=== PATIENT | female | born 1965 | race American Indian/Alaskan Native ===

== ENCOUNTER 2017-10-23 13:54 | Inpatient (IN) | payer OTHER ==
[2017-10-23 13:55] VITALS: BMI 27.4
[2017-10-23] MEDS ORDERED: Sodium Chloride 0.9% 1,000 ML IV ONE (15:36)
[2017-10-23 16:01] LABS: BASO # 0.1 K/uL (0.0-0.2); BASO % 1.5 % (0.0-2.0); EOS % 0.5 % (0.0-4.0); HEMOGLOBIN 15.2 g/dL (11.0-16.0); LYMPH # 1.5 K/uL (1.0-4.3); LYMPH % 28.9 % (20.0-40.0); MEAN CORPUSCULAR HEMOGLOBIN 28.2 pg (27.0-31.0); MEAN PLATELET VOLUME 9.2 fL (7.2-11.7); MONO # 0.5 K/uL (0.0-0.8); MONO % 9.4 % (0.0-10.0); NEUT # 3.2 K/uL (1.8-7.0); NEUT % 59.7 % (50.0-75.0); NRBC % 0.2 % (0.0-2.0); RBC 5.4 Mil/uL (3.80-5.20); RED CELL DISTRIBUTION WIDTH 13.7 % (11.5-14.5); WHITE BLOOD COUNT 5.3 K/uL (4.8-10.8)
[2017-10-23 16:09] LABS: INR 1.2; PROTHROMBIN TIME 12.7 SECONDS (9.7-12.2)
[2017-10-23] MEDS ORDERED: Sodium Chloride 0.9% 1,000 ML ONE (16:12)
[2017-10-23 16:17] LABS: ALBUMIN 4.3 g/dL (3.5-5.0); ALT/SGPT 61 U/L (9-52); AST/SGOT 34 U/L (14-36); BLOOD UREA NITROGEN 8 mg/dL (7-17); CALCIUM 9.4 mg/dl (8.6-10.4); GFR AFRICAN-AMERICAN > 60; GFR NON-AFRICAN AMERICAN > 60
[2017-10-23 16:34] LABS: FREE T4 1.01 ng/dL (0.78-2.19)
--- NOTE | 2017-10-23 17:44 | CT ---
PROCEDURE: CT HEAD WITHOUT CONTRAST. HISTORY: Left frontal headache. Dizziness. COMPARISON: 03/08/2016 TECHNIQUE: Axial computed tomography images were obtained through the head/brain without intravenous contrast. Radiation dose: Total exam DLP = 1341.62 mGy-cm. This CT exam was performed using one or more of the following dose reduction techniques: Automated exposure control, adjustment of the mA and/or kV according to patient size, and/or use of iterative reconstruction technique. FINDINGS: HEMORRHAGE: No intracranial hemorrhage. BRAIN: No mass effect or edema. No atrophy or chronic microvascular ischemic changes. VENTRICLES: Unremarkable. No hydrocephalus. CALVARIUM: Unremarkable. PARANASAL SINUSES: Unremarkable as visualized. No significant inflammatory changes. MASTOID AIR CELLS: Unremarkable as visualized. No inflammatory changes. OTHER FINDINGS: None. IMPRESSION: Normal CT of the Head. No intracranial mass, hemorrhage or evidence of acute infarct.
--- NOTE | 2017-10-23 20:47 | C.PDOC ---
Time Seen by Provider: 10/23/17 14:52 Chief Complaint (Nursing): Headache History Per: Patient, Family Onset/Duration Of Symptoms: Days (about 1 week), Waxing/Waning Current Symptoms Are (Timing): Still Present Severity: Moderate Quality: Pressure Associated Symptoms: Nausea, Vomiting, Other (Dizziness) Additional History Per: Prior Records Past Medical History Reviewed: Historical Data, Nursing Documentation, Vital Signs Vital Signs: Last Vital Signs Temp 97.7 F 10/23/17 14:00 Pulse 63 10/23/17 20:20 Resp 16 10/23/17 20:20 BP 131/75 10/23/17 20:20 Pulse Ox 98 10/23/17 20:20 - Medical History PMH: Anemia, Hypercholesterolemia, Hypothyroidism Surgical History: - [facility] Procedures PACKED CELL TRANSFUSION (02/08/13) Family History: States: Unknown Family Hx - Social History Hx Tobacco Use: No Hx Alcohol Use: No Hx Substance Use: No - Immunization History Hx Tetanus Toxoid Vaccination: No Hx Influenza Vaccination: No Hx Pneumococcal Vaccination: No Review Of Systems Except As Marked, All Systems Reviewed And Found Negative. Constitutional: Negative for: Fever Eyes: Positive for: Vision Change ENT: Negative for: Ear Pain, Ear Discharge Cardiovascular: Negative for: Chest Pain Respiratory: Negative for: Shortness of Breath Gastrointestinal: Positive for: Nausea, Vomiting. Negative for: Abdominal Pain , Diarrhea Genitourinary: Negative for: Dysuria Musculoskeletal: Negative for: Neck Pain Skin: Negative for: Rash Neurological: Positive for: Incoordination, Headache, Dizziness. Negative for: Weakness, Numbness, Seizures, Altered Mental Status Physical Exam - Physical Exam Appears: No Acute Distress Skin: Normal Color, Warm, Dry Head: Atraumatic, Normacephalic Eye(s): bilateral: PERRL, Other (mild nystagmus) Ear(s): Bilateral: Normal Neck: Normal ROM, Supple Cardiovascular: Rhythm Regular Respiratory: Normal Breath Sounds, No Accessory Muscle Use Gastrointestinal/Abdominal: Soft, No Tenderness Extremity: Normal ROM Neurological/Psych: Oriented x3, Normal Speech, Normal Cognition, Normal Cranial Nerves, Cerebellar Signs (possible subtle abnormality to FTN on left side), Normal Motor, Normal Sensation ED Course And Treatment - Laboratory Results Result Diagrams: 10/23/17 15:57 10/23/17 15:57 Lab Interpretation: No Acute Changes ECG: Interpreted By Me, Viewed By Me ECG Rhythm: Sinus Rhythm, Nonspecific Changes ECG Interpretation: No Acute Changes Rate From EC O2 Sat by Pulse Oximetry: 98 Pulse Ox Interpretation: Normal - CT Scan/US CT head Other Rad Studies (CT/US): Read By Radiologist, Radiology Report Reviewed CT/US Interpretation: IMPRESSION: Normal CT of the Head. No intracranial mass , hemorrhage or evidence of acute infarct. - Physician Consult Information Physician Contacted: Henrik Pino (Neuro) Outcome Of Conversation: I discussed with him the pt's presentation and findings , he recommended that pt be admitted and given Valium 2mg po q6hrs for vertigo and to obtain MRI of brain with and without contrast. He will see pt in the hospital. Progress - Interventions Interventions:: Observation, Intravenous fluid - Medications Administered Oral: Acetaminophen, Antiemetic - Data Reviewed Data Reviewed: Lab, Diagnostic imaging, EKG, Old records, Other - Patient Status Patient status: Partially improved - Continuity of Care Discussed patient case with:: Patient, Family-HIPPA compliant, ED Nurse, On- call PMD-pt unassigned Discussed pt. case with heritage consultant/specialty: Neurology - Patient Plan Patient Plan: Admission Disposition Discussed With : Tyron Estrada Comment: He accepted pt on hospitalist service. Doctor Will See Patient In The: Hospital Counseled Patient/Family Regarding: Studies Performed, Diagnosis - Disposition Disposition: HOSPITALIZED Disposition Time: 20:50 Condition: FAIR - Clinical Impression Clinical Impression: Headache, Vertigo
--- NOTE | 2017-10-23 22:31 | CP.PCM.HP ---
<Karrie De La Fuente - Last Filed: 10/23/17 22:45> History of Present Illness - History of Present Illness History of Present Illness: H&P: 51 year old female with past medical history of hypothyroidism, HLD, vertigo and vit D deficiency presented to hospitals for feeling dizzy and nausea for about 7 days. Patient states that for about 7 days, she has been "feeling funny" on the left side of her face. This funny feeling was intermittent at first but in last few days has been more persistent. This morning, patient states that was having a hard time forming words and again the left side of her face was "feeling funny". Patient also complains of epigastric pain and N/V for past few days. She has vomited a few times in last few days, clear liquid, NB/NB. Patient denies having any D/C, F/C. Currently, patient continues to c/o lightheadedness. She states that every time she sits forward, lightheadedness worsens. Lightheadedness is different from her history of vertigo. Pt denies having any extremity weakness, numbness or tingling. Patient is able to ambulate without difficulty. PMHx: stated above Sx: c section Social: denies tobacco, etoh or drug use Meds; levothyroxine 200 mcg qd (dose increased 5 days ago), Ergocalciferol 90909 units weekly, atorvastatin 40 mg po qd OMD; Dr. Powers Present on Admission - Present on Admission Any Indicators Present on Admission: No Review of Systems - Constitutional Constitutional: absent: Chills, Fever - EENT Eyes: absent: Blurred Vision, Change in Vision Nose/Mouth/Throat: absent: Nasal Congestion, Nasal Discharge, Sore Throat - Cardiovascular Cardiovascular: absent: Chest Pain, Dyspnea, Dyspnea on Exertion, Edema, Leg Edema - Respiratory Respiratory: absent: Cough, Dyspnea, Dyspnea on Exertion, Wheezing, Chest Congestion - Gastrointestinal Gastrointestinal: Abdominal Pain, Nausea, Vomiting. absent: Constipation, Diarrhea - Genitourinary Genitourinary: absent: Dysuria, Hematuria, Urinary Frequency - Musculoskeletal Musculoskeletal: absent: Back Pain, Joint Swelling, Muscle Weakness - Integumentary Integumentary: absent: Acne, Lesions, Rash, Wounds - Neurological Neurological: Abnormal Speech, Dizziness, Vertigo. absent: Abnormal Gait, Abnormal Movements, Confusion, Convulsions, Focal Weakness, Frequent Falls, Headaches, Sensory Deficit, Syncope, Tingling, Weakness - Psychiatric Psychiatric: absent: Anxiety, Depression Past Patient History - Past Medical History & Family History Past Medical History?: Yes - Past Social History Smoking Status: Never Smoked Chewing Tobacco Use: No Cigar Use: No Alcohol: None Drugs: Denies Home Situation {Lives}: Alone - CARDIAC Hx Hypercholesterolemia: Yes - PULMONARY Hx Respiratory Disorders: No - NEUROLOGICAL Hx Neurological Disorder: No - HEENT Hx HEENT Problems: No - RENAL Hx Chronic Kidney Disease: No - ENDOCRINE/METABOLIC Hx Hypothyroidism: Yes - HEMATOLOGICAL/ONCOLOGICAL Hx Anemia: Yes - INTEGUMENTARY Hx Dermatological Problems: No - MUSCULOSKELETAL/RHEUMATOLOGICAL Hx Musculoskeletal Disorders: No Hx Falls: No - GASTROINTESTINAL Hx Gastrointestinal Disorders: No - GENITOURINARY/GYNECOLOGICAL Hx Genitourinary Disorders: No - PSYCHIATRIC Hx Substance Use: No - SURGICAL HISTORY Hx Surgeries: Yes Hx Section: Yes Other/Comment: Removal of cysts bilateral breasts - benign - ANESTHESIA Hx Anesthesia: Yes Hx Anesthesia Reactions: No Hx Malignant Hyperthermia: No Meds Allergies/Adverse Reactions: Allergies Allergy/AdvReac Type Severity Reaction Status Date / Time No Known Allergies Allergy Verified 10/23/17 14:09 Physical Exam - Constitutional Appears: Non-toxic, No Acute Distress - Head Exam Head Exam: ATRAUMATIC - Eye Exam Eye Exam: EOMI - ENT Exam ENT Exam: Mucous Membranes Moist - Respiratory Exam Respiratory Exam: Clear to Auscultation Bilateral. absent: Accessory Muscle Use , Rales, Rhonchi, Wheezes, Respiratory Distress - Cardiovascular Exam Cardiovascular Exam: REGULAR RHYTHM, +S1, +S2. absent: Diastolic murmur, Gallop , Rubs, Systolic Murmur - GI/Abdominal Exam GI & Abdominal Exam: Normal Bowel Sounds, Soft. absent: Distended, Firm, Guarding, Rigid, Tenderness - Extremities Exam Extremities exam: Negative for: pedal edema, tenderness - Neurological Exam Neurological exam: Alert, CN II-XII Intact, Oriented x3 - Psychiatric Exam Psychiatric exam: Normal Affect, Normal Mood - Skin Skin Exam: Dry, Intact, Normal Color, Warm Results - Vital Signs Recent Vital Signs: Last Vital Signs Temp 97.7 F 10/23/17 14:00 Pulse 57 L 10/23/17 22:09 Resp 19 10/23/17 22:09 BP 131/79 10/23/17 22:09 Pulse Ox 97 10/23/17 22:09 - Labs Result Diagrams: 10/23/17 15:57 10/23/17 15:57 Labs: Laboratory Results - last 24 hr 10/23/17 10/23/17 10/23/17 15:57 15:57 15:57 WBC 5.3 RBC 5.40 H Hgb 15.2 Hct 44.8 MCV 83.0 D MCH 28.2 MCHC 34.0 RDW 13.7 Plt Count 305 MPV 9.2 Neut % (Auto) 59.7 Lymph % (Auto) 28.9 [place] % (Auto) 9.4 Eos % (Auto) 0.5 Baso % (Auto) 1.5 Neut # (Auto) 3.2 Lymph # (Auto) 1.5 [place] # (Auto) 0.5 Eos # (Auto) 0.0 Baso # (Auto) 0.1 PT 12.7 H INR 1.2 APTT 31 Sodium 143 Potassium 3.8 Chloride 103 Carbon Dioxide 26 Anion Gap 18 BUN 8 Creatinine 0.6 L Est GFR ( Amer) > 60 Est GFR (Non-Af Amer) > 60 Random Glucose 121 H Calcium 9.4 Magnesium 2.0 Total Bilirubin 1.1 AST 34 ALT 61 H D Alkaline Phosphatase 82 Troponin I < 0.0120 Total Protein 8.7 H Albumin 4.3 Globulin 4.4 H Albumin/Globulin Ratio 1.0 Free T4 TSH 3rd Generation 10/23/17 15:57 WBC RBC Hgb Hct MCV MCH MCHC RDW Plt Count MPV Neut % (Auto) Lymph % (Auto) [place] % (Auto) Eos % (Auto) Baso % (Auto) Neut # (Auto) Lymph # (Auto) [place] # (Auto) Eos # (Auto) Baso # (Auto) PT INR APTT Sodium Potassium Chloride Carbon Dioxide Anion Gap BUN Creatinine Est GFR ( Amer) Est GFR (Non-Af Amer) Random Glucose Calcium Magnesium Total Bilirubin AST ALT Alkaline Phosphatase Troponin I Total Protein Albumin Globulin Albumin/Globulin Ratio Free T4 1.01 TSH 3rd Generation 8.45 H Assessment & Plan - Assessment and Plan (Free Text) Assessment: 51 year old female with past medicalhistory of hypothyroidism, vertigo, vit d deficiency, HLD is admitted for possible TIA. CT of head in the ED was negative. R/O TIA - Neurology, Dr. Pino was consulted by ED physician. recommended getting MRI/ MRA of head and neck. Also recommended starting pt on valium 2 mg po q6 for vertigo type symptoms. - MRI/MRA of head ordered - Valium 2 mg po q6 prn - will give aspirin 325 mg and continue daily aspirin 81 mg po qd - Will check lipid panel and hgb A1c - will check orthostatics - NS 75 cc Chest pain - Initial troponins negative. EKG was NSr with non-specific t wave changes - will get serial trops and ekg - will check echo Hypothyroid - On admission TSH 8.45, free T4 1.01 - Continue home medication levothyroxine 200 mcg qd HLD - Will check lipid panel - Continue statin therapy Prophylaxis - SCDs - Lovenox Case discussed with attending, Dr. Estrada - Date & Time Date: 10/23/17 Time: 22:45 <Tyron Estrada - Last Filed: 10/24/17 06:15> Results - Vital Signs Recent Vital Signs: Last Vital Signs Temp 98.1 F 10/24/17 00:51 Pulse 63 10/24/17 00:51 Resp 20 10/24/17 00:51 BP 124/79 10/24/17 00:51 Pulse Ox 97 10/24/17 00:51 - Labs Result Diagrams: 10/23/17 15:57 10/23/17 15:57 Labs: Laboratory Results - last 24 hr 10/23/17 10/23/17 10/23/17 15:57 15:57 15:57 WBC 5.3 RBC 5.40 H Hgb 15.2 Hct 44.8 MCV 83.0 D MCH 28.2 MCHC 34.0 RDW 13.7 Plt Count 305 MPV 9.2 Neut % (Auto) 59.7 Lymph % (Auto) 28.9 [place] % (Auto) 9.4 Eos % (Auto) 0.5 Baso % (Auto) 1.5 Neut # (Auto) 3.2 Lymph # (Auto) 1.5 [place] # (Auto) 0.5 Eos # (Auto) 0.0 Baso # (Auto) 0.1 PT 12.7 H INR 1.2 APTT 31 Sodium 143 Potassium 3.8 Chloride 103 Carbon Dioxide 26 Anion Gap 18 BUN 8 Creatinine 0.6 L Est GFR ( Amer) > 60 Est GFR (Non-Af Amer) > 60 Random Glucose 121 H Calcium 9.4 Magnesium 2.0 Total Bilirubin 1.1 AST 34 ALT 61 H D Alkaline Phosphatase 82 Total Creatine Kinase CK-MB (Mass) Troponin I < 0.0120 Total Protein 8.7 H Albumin 4.3 Globulin 4.4 H Albumin/Globulin Ratio 1.0 Free T4 TSH 3rd Generation 10/23/17 10/23/17 15:57 23:55 WBC RBC Hgb Hct MCV MCH MCHC RDW Plt Count MPV Neut % (Auto) Lymph % (Auto) [place] % (Auto) Eos % (Auto) Baso % (Auto) Neut # (Auto) Lymph # (Auto) [place] # (Auto) Eos # (Auto) Baso # (Auto) PT INR APTT Sodium Potassium Chloride Carbon Dioxide Anion Gap BUN Creatinine Est GFR ( Amer) Est GFR (Non-Af Amer) Random Glucose Calcium Magnesium Total Bilirubin AST ALT Alkaline Phosphatase Total Creatine Kinase 48 CK-MB (Mass) < 0.22 Troponin I < 0.0120 Total Protein Albumin Globulin Albumin/Globulin Ratio Free T4 1.01 TSH 3rd Generation 8.45 H Assessment & Plan - Date & Time Date: 10/24/17 (I have seen and examined the patient. I agree with the findings and plan of care as documented by Dr. De La Fuente. Patient with TIA and chest pain. Consult to Neuro. Recommended MRI brain in AM. Valium for vertigo type symptoms. ROMIx3 with EKG. 2D Echo. Aspirin and Statin. Continue home meds for history of hypothyroidism. Monitor for acute changes.) Time: 06:13 Attending/Attestation - Attestation I have personally seen and examined this patient.: Yes I have fully participated in the care of the patient.: Yes I have reviewed all pertinent clinical information: Yes
[2017-10-23] MEDS ORDERED: Aspirin 325 mg EC Tablets PO STA (22:54)
[2017-10-23] MEDS: Sodium Chloride 0.9% 1,000 ML IV SCH (23:17)
[2017-10-24 00:40] LABS: CK-MB < 0.22 ng/mL (0.0-3.38)
[2017-10-24] MEDS: Levothyroxine 200 MCG TAB PO SCH (06:21)
[2017-10-24 06:45] LABS: BASO # 0.1 K/uL (0.0-0.2); BASO % 1.4 % (0.0-2.0); EOS # 0.1 K/uL (0.0-0.7); EOS % 1.5 % (0.0-4.0); HEMOGLOBIN 13.1 g/dL (11.0-16.0); LYMPH % 40.3 % (20.0-40.0); MEAN CELL VOLUME 83.3 fL (81.0-99.0); MEAN CORPUSCULAR HEMOGLOBIN 28.6 pg (27.0-31.0); MEAN CORPUSCULAR HGB CONC 34.4 g/dL (33.0-37.0); MEAN PLATELET VOLUME 9.4 fL (7.2-11.7); MONO # 0.6 K/uL (0.0-0.8); MONO % 12.1 % (0.0-10.0); NEUT # 2.3 K/uL (1.8-7.0); NEUT % 44.7 % (50.0-75.0); NRBC % 0.1 % (0.0-2.0); RBC 4.58 Mil/uL (3.80-5.20); RED CELL DISTRIBUTION WIDTH 13.3 % (11.5-14.5); WHITE BLOOD COUNT 5.1 K/uL (4.8-10.8)
[2017-10-24 07:41] LABS: LDL CHOLESTEROL 171 mg/dL (0-129)
[2017-10-24 07:47] LABS: ALB/GLOB RATIO 0.9 (1.0-2.1); ALBUMIN 3.6 g/dL (3.5-5.0); ALT/SGPT 47 U/L (9-52); AST/SGOT 36 U/L (14-36); BLOOD UREA NITROGEN 5 mg/dL (7-17); CALCIUM 9.2 mg/dl (8.6-10.4); CK-MB < 0.22 ng/mL (0.0-3.38); GFR AFRICAN-AMERICAN > 60; GFR NON-AFRICAN AMERICAN > 60; HDL CHOLESTEROL 27 mg/dL (30-70)
[2017-10-24] MEDS: Enoxaparin 40 mg Syringe SC SCH (09:11)
--- NOTE | 2017-10-24 09:22 | RAD ---
PROCEDURE: CHEST RADIOGRAPH, 1 VIEW HISTORY: chest pain COMPARISON: Chest radiograph dated 12/14/2013 FINDINGS: LUNGS: Prominence of the pulmonary vasculature may be secondary to AP technique and/or pulmonary vascular congestion. Bibasilar atelectasis/ scarring redemonstrated. PLEURA: No pneumothorax or pleural fluid seen. CARDIOVASCULAR: Normal. OSSEOUS STRUCTURES: Unchanged. VISUALIZED UPPER ABDOMEN: Normal. OTHER FINDINGS: None. IMPRESSION: Prominence of the pulmonary vasculature may be secondary to AP technique and/or pulmonary vascular congestion. Bibasilar atelectasis/scarring.
[2017-10-24] MEDS ORDERED: Potassium Chloride 20 mEq ER Tab PO ONE (10:00)
[2017-10-24] MEDS: Sodium Chloride 0.9% 1,000 ML IV SCH ×2 (10:14→14:50)
--- NOTE | 2017-10-24 14:12 | CP.PCM.PN ---
<Zenaida Newell Brody - Last Filed: 10/24/17 14:39> Subjective - Date & Time of Evaluation Date of Evaluation: 10/24/17 Time of Evaluation: 07:00 - Subjective Subjective: PGY1- Medicine Note Patient seen and examined at bedside and in no acute distress. Patient says she is not dizzy if she is completely still. Patient denies any nausea or vomiting. Patient denies any chest pain or shortness of breath. Patient denies any weakness or loss of sensation. A few hours later patient re-evaluated. Patient had been taken to MRI, but was unable to lie flat due to extreme dizziness. When asked to describe the dizziness patient explained it is a pressure like feeling on the left side of her forehead and behind her eye. Patient says moving her head side to side or moving from laying to sitting up causes her extreme dizziness. Patient denies any sensitivity to light, but keeps closing her eyes during exam saying that her eyes feel strained. Patient denies any double vision. Additionally patient admits to ringing in b/l ears. Patient has had this for about 1 year and saw ENT in the past. Objective - Vital Signs/Intake and Output Vital Signs (last 24 hours): Temp Pulse Resp BP Pulse Ox 98.5 F 67 20 127/84 97 10/24/17 11:35 10/24/17 12:00 10/24/17 11:35 10/24/17 11:35 10/24/17 11:35 Intake and Output: 10/24/17 10/24/17 06:59 18:59 Intake Total 718 Balance 718 - Medications Medications: Current Medications Aspirin (Ecotrin) 81 mg PO DAILY [facility] Last Admin: 10/24/17 09:11 Dose: 81 mg Diazepam (Valium) 2 mg PO Q6 PRN PRN Reason: Dizziness Last Admin: 10/24/17 11:56 Dose: 2 mg Enoxaparin Sodium (Lovenox) 40 mg SC DAILY [facility] Last Admin: 10/24/17 09:11 Dose: 40 mg Sodium Chloride (Sodium Chloride 0.9%) 1,000 mls @ 75 mls/hr IV .[id number] [facility] Last Admin: 10/24/17 10:14 Dose: 75 mls/hr Levothyroxine Sodium (Synthroid) 200 mcg PO DAILY@0630 [facility] Last Admin: 10/24/17 06:21 Dose: 200 mcg Meclizine HCl (Antivert) 25 mg PO BID [facility] Ondansetron HCl (Zofran Inj) 4 mg IVP Q6 PRN PRN Reason: Nausea/Vomiting Rosuvastatin Calcium (Crestor) 5 mg PO HS [facility] Last Admin: 10/23/17 23:17 Dose: 5 mg - Labs Labs: 10/24/17 06:36 10/24/17 06:36 PT 12.7 SECONDS (9.7-12.2) H 10/23/17 15:57 INR 1.2 10/23/17 15:57 APTT 31 SECONDS (21-34) 10/23/17 15:57 - Constitutional Appears: Non-toxic, No Acute Distress - Head Exam Head Exam: ATRAUMATIC, NORMAL INSPECTION, NORMOCEPHALIC - Eye Exam Eye Exam: EOMI, Normal appearance Pupil Exam: absent: NORMAL ACCOMODATION (difficulty with accomodation) - ENT Exam ENT Exam: Mucous Membranes Moist - Respiratory Exam Respiratory Exam: Decreased Breath Sounds, NORMAL BREATHING PATTERN. absent: Rales, Rhonchi, Wheezes, Respiratory Distress, Stridor - Cardiovascular Exam Cardiovascular Exam: REGULAR RHYTHM, RRR, +S1, +S2 - GI/Abdominal Exam GI & Abdominal Exam: Soft, Normal Bowel Sounds. absent: Tenderness - Extremities Exam Extremities Exam: Normal Inspection. absent: Pedal Edema, Tenderness - Back Exam Back Exam: NORMAL INSPECTION - Neurological Exam Neurological Exam: Alert, Awake, CN II-XII Intact, Oriented x3 Neuro motor strength exam: Left Upper Extremity: 5, Right Upper Extremity: 5, Left Lower Extremity: 5, Right Lower Extremity: 5 Additional comments: dizziness with head movement - Psychiatric Exam Psychiatric exam: Normal Affect, Normal Mood - Skin Skin Exam: Intact, Normal Color, Warm Assessment and Plan - Assessment and Plan (Free Text) Assessment: Dizziness - Neurology, Dr. Pino was consulted by ED physician. recommended getting MRI/ MRA of head and neck. Also recommended starting pt on valium 2 mg po q6 for vertigo type symptoms. - MRI Brain/MRA of head and neck ordered - if patient cannot tolerate MRI will need CTA to rule out VBI - Valium 2 mg po q6 prn - Antivert 25mg po BID - will give aspirin 325 mg and continue daily aspirin 81 mg po qd - Will check lipid panel and hgb A1c - will check orthostatics - NS 75 cc - Orthostatic vital signs check on 10/24: laying 150/82 HR 80, Sitting 140/84, HR 84, Standing 146/87, HR 80 Chest pain -resolved -Troponins neg x 3 -EKG was NSR with non-specific t wave changes - will check echo Hypothyroid - On admission TSH 8.45, free T4 1.01 - Continue home medication levothyroxine 200 mcg qd HLD - lipid panel: Chol 226, LDL 171, HDL 27. - Continue statin therapy Prophylaxis - SCDs - Lovenox <Kiara Noland V - Last Filed: 10/24/17 17:00> Objective - Vital Signs/Intake and Output Vital Signs (last 24 hours): Temp Pulse Resp BP Pulse Ox 98.5 F 67 20 127/84 97 10/24/17 11:35 10/24/17 12:00 10/24/17 11:35 10/24/17 11:35 10/24/17 11:35 Intake and Output: 10/24/17 10/24/17 06:59 18:59 Intake Total 718 850 Balance 718 850 - Medications Medications: Current Medications Aspirin (Ecotrin) 81 mg PO DAILY [facility] Last Admin: 10/24/17 09:11 Dose: 81 mg Diazepam (Valium) 2 mg PO Q6 PRN PRN Reason: Dizziness Last Admin: 10/24/17 11:56 Dose: 2 mg Enoxaparin Sodium (Lovenox) 40 mg SC DAILY [facility] Last Admin: 10/24/17 09:11 Dose: 40 mg Sodium Chloride (Sodium Chloride 0.9%) 1,000 mls @ 75 mls/hr IV .[id number] [facility] Last Admin: 10/24/17 14:50 Dose: Not Given Levothyroxine Sodium (Synthroid) 200 mcg PO DAILY@0630 [facility] Last Admin: 10/24/17 06:21 Dose: 200 mcg Meclizine HCl (Antivert) 25 mg PO BID [facility] Last Admin: 10/24/17 14:22 Dose: 25 mg Ondansetron HCl (Zofran Inj) 4 mg IVP Q6 PRN PRN Reason: Nausea/Vomiting Rosuvastatin Calcium (Crestor) 5 mg PO HS [facility] Last Admin: 10/23/17 23:17 Dose: 5 mg - Labs Labs: 10/24/17 06:36 10/24/17 06:36 PT 12.7 SECONDS (9.7-12.2) H 10/23/17 15:57 INR 1.2 10/23/17 15:57 APTT 31 SECONDS (21-34) 10/23/17 15:57 Attending/Attestation - Attestation I have personally seen and examined this patient.: Yes I have fully participated in the care of the patient.: Yes I have reviewed all pertinent clinical information, including history, physical exam and plan: Yes Notes (Text): Patient seen, examined and case discussed with day-time resident. Patient seen this morning with medical team. Patient this morning had attempted MRI scans but was unable to lie flat because of pronounced fullness she feels in head which she describes as "dizziness". Patient denies vertigo. Patient reports when she turns her head she feels the dizziness. Patient reports bilateral ringing in the ears which she has had for at least one year and had followed with ENT at the time but nothing reported. Patient reports mild nausea on exam. Patient reports she has not seen the eye doctor in about 2 years; reports she used to have good eye sight but has been getting worse. Patient on exam needs to alternate between which eye she keeps open/close to able to follow my finger but I ask her she reports its due to eye strain. Patient is agreeable to re-attempt for MRI later today. Patient is pending echocardiogram as well. Assessment/Plan 1) Dizziness Persistent Headache * Neurology on board-->help appreciated * Recommended for Head/Neck MRI/MRA; if unable to tolerate-->CT head/neck for consideration for vestibulbar insufficiency * Start on Valium 2mg PO Q6H for vertigo like systems * Aspirin 81mg PO daily * Antivert 25mg PO BID * NS 75 cc/hr * Orthostatic vital signs check on 10/24: laying 150/82 HR 80, Sitting 140/84, HR 84, Standing 146/87, HR 80--->patient is not orthostatic * Lipid panel: T, Cholestrol: 226, LDL: 171, HDL: 27 * Hgba1c: 5.7 2) Chest pain (resolved) * Lipid panel: T, Cholestrol: 226, LDL: 171, HDL: 27 * Hgba1c: 5.7 * Order for echocardiogram-->pending official read * EKG 1: normal sinus varies sinus arrhythmia * EkG 2: bradycardia * ERNIE X3: negative 3) Known history of hypothyroidism * On admission TSH 8.45, free T4 1.01 * Continue home medication levothyroxine 200 mcg qd--->patient recently titrated to this dose by her PMD 4) Lipid Disorder * Lipid panel: T, Cholestrol: 226, LDL: 171, HDL: 27 * Crestor 5mg POqHS * Patient will need [place] 3 FA to increase HDL over time 5) Prophylaxis * SCDs * Lovenox 40mg subqdaily * Zofran 4mg IV Q6 H PRN nausea/vomitting * NS 75cc/hr
[2017-10-24] MEDS ORDERED: Iodixanol 320 MG/ML 100 ML BOTTLE IV ONE (16:41)
--- NOTE | 2017-10-24 18:11 | CT ---
PROCEDURE: CT Angiography of the neck and brain dated 10/24/2017 HISTORY: VBI COMPARISON: Comparison made with CT scan brain dated 10/23/2017 TECHNIQUE: Contiguous helical/transaxial images of the neck were obtained from the level of the skull-base to the superior mediastinum in the arteriographic phase of enhancement. Coronal and sagittal reformats or also generated. IV contrast dose: 100 cc Visipaque 320 Radiation Dose - DLP: 720.67mGy-cm This CT exam was performed using one or more of the following dose reduction techniques: Automated exposure control, adjustment of the mA and/or kV according to patient size, and/or use of iterative reconstruction technique. FINDINGS: Visualized thoracic aorta of widely patent despite some minor partially calcified atherosclerotic plaque seen along the undersurface of the transverse portion of the arch. The right brachiocephalic and left common carotid artery arise from a common trunk. The origins of the great vessels are widely patent. . The visualized common common carotid arteries and carotid bifurcations are patent despite a tiny calcified plaque changes seen along the posterior margins of both carotid bifurcations more so on the left side. The internal carotid arteries including the petrous cavernous and supraclinoid segments widely patent. The vertebral arteries are visible throughout and are widely patent. . The vertebral arteries are relatively symmetric. . The basilar artery is also patent. The visualized major branches of the [place] are patent. Distal branches of the anterior middle and posterior cerebral arteries are symmetric. No evidence of large aneurysm nor vascular malformation. Impression: IMPRESSION: There are minor calcified plaque changes seen along the posterior margins of both carotid bifurcations without significant stenosis. The remaining cervical an extracranial anterior posterior circulation patent. Intracerebral circulation widely patent with no evidence of large aneurysm nor vascular malformation. .
--- NOTE | 2017-10-24 18:28 | CP.PCM.CON ---
History of Present Illness - History of Present Illness History of Present Illness: Mrs. Bailey is a 51-year-old woman with a past medical history of HLD, vertigo , who states that for the past week she has been having worsening vertigo with nausea/vomiting. It is more severe when she looks or moves toward the left. She has received Valium and this did help, but she still has symptoms. CT and CTA of the head/neck were normal. Review of Systems - Review of Systems All systems: reviewed and no additional remarkable complaints except Past Patient History - Past Medical History & Family History Past Medical History?: Yes - Past Social History Smoking Status: Never Smoked - CARDIAC Hx Cardiac Disorders: Yes Hx Hypercholesterolemia: Yes - PULMONARY Hx Respiratory Disorders: No - NEUROLOGICAL Hx Neurological Disorder: No - HEENT Hx HEENT Problems: No - RENAL Hx Chronic Kidney Disease: No - ENDOCRINE/METABOLIC Hx Hypothyroidism: Yes - HEMATOLOGICAL/ONCOLOGICAL Hx Blood Disorders: Yes Hx Anemia: Yes - INTEGUMENTARY Hx Dermatological Problems: No - MUSCULOSKELETAL/RHEUMATOLOGICAL Hx Musculoskeletal Disorders: No Hx Falls: No - GASTROINTESTINAL Hx Gastrointestinal Disorders: No - GENITOURINARY/GYNECOLOGICAL Hx Genitourinary Disorders: No - PSYCHIATRIC Hx Psychophysiologic Disorder: No Hx Substance Use: No - SURGICAL HISTORY Hx Surgeries: Yes Hx Section: Yes Other/Comment: Removal of cysts bilateral breasts - benign - ANESTHESIA Hx Anesthesia: Yes Hx Anesthesia Reactions: No Hx Malignant Hyperthermia: No Meds Allergies/Adverse Reactions: Allergies Allergy/AdvReac Type Severity Reaction Status Date / Time No Known Allergies Allergy Verified 10/23/17 14:09 - Medications Medications: Current Medications Aspirin (Ecotrin) 81 mg PO DAILY [facility] Last Admin: 10/24/17 09:11 Dose: 81 mg Diazepam (Valium) 2 mg PO Q6 PRN PRN Reason: Dizziness Last Admin: 10/24/17 11:56 Dose: 2 mg Enoxaparin Sodium (Lovenox) 40 mg SC DAILY [facility] Last Admin: 10/24/17 09:11 Dose: 40 mg Sodium Chloride (Sodium Chloride 0.9%) 1,000 mls @ 75 mls/hr IV .[id number] [facility] Last Admin: 10/24/17 14:50 Dose: Not Given Levothyroxine Sodium (Synthroid) 200 mcg PO DAILY@0630 [facility] Last Admin: 10/24/17 06:21 Dose: 200 mcg Meclizine HCl (Antivert) 25 mg PO BID [facility] Last Admin: 10/24/17 18:11 Dose: 25 mg Ondansetron HCl (Zofran Inj) 4 mg IVP Q6 PRN PRN Reason: Nausea/Vomiting Rosuvastatin Calcium (Crestor) 5 mg PO [facility] Last Admin: 10/23/17 23:17 Dose: 5 mg Physical Exam - Neurological Exam Neurological exam: Abnormal Gait, CN II-XII Intact, Oriented x3, Reflexes Normal Additional comments: Nystagmus on left lateral gaze with fast phase to the right. Results - Vital Signs Recent Vital Signs: Last Vital Signs Temp 98.5 F 10/24/17 11:35 Pulse 91 H 10/24/17 17:00 Resp 20 10/24/17 11:35 BP 127/84 10/24/17 11:35 Pulse Ox 97 10/24/17 11:35 - Labs Result Diagrams: 10/24/17 06:36 10/24/17 06:36 Labs: Laboratory Results - last 24 hr 10/23/17 10/24/17 10/24/17 23:55 06:36 06:36 WBC 5.1 RBC 4.58 Hgb 13.1 D Hct 38.1 MCV 83.3 MCH 28.6 MCHC 34.4 RDW 13.3 Plt Count 260 MPV 9.4 Neut % (Auto) 44.7 L Lymph % (Auto) 40.3 H [place] % (Auto) 12.1 H Eos % (Auto) 1.5 Baso % (Auto) 1.4 Neut # (Auto) 2.3 Lymph # (Auto) 2.0 [place] # (Auto) 0.6 Eos # (Auto) 0.1 Baso # (Auto) 0.1 Sodium 145 Potassium 3.5 L Chloride 110 H Carbon Dioxide 24 Anion Gap 15 BUN 5 L Creatinine 0.6 L Est GFR ( Amer) > 60 Est GFR (Non-Af Amer) > 60 Random Glucose 80 Hemoglobin A1c Calcium 9.2 Total Bilirubin 1.1 AST 36 ALT 47 Alkaline Phosphatase 76 Total Creatine Kinase 48 49 CK-MB (Mass) < 0.22 < 0.22 Troponin I < 0.0120 < 0.0120 Total Protein 7.5 Albumin 3.6 Globulin 3.9 Albumin/Globulin Ratio 0.9 L Triglycerides 75 D Cholesterol 226 H LDL Cholesterol Direct 171 H HDL Cholesterol 27 L Urine HCG, Qual 10/24/17 10/24/17 06:36 10:24 WBC RBC Hgb Hct MCV MCH MCHC RDW Plt Count MPV Neut % (Auto) Lymph % (Auto) [place] % (Auto) Eos % (Auto) Baso % (Auto) Neut # (Auto) Lymph # (Auto) [place] # (Auto) Eos # (Auto) Baso # (Auto) Sodium Potassium Chloride Carbon Dioxide Anion Gap BUN Creatinine Est GFR ( Amer) Est GFR (Non-Af Amer) Random Glucose Hemoglobin A1c 5.7 Calcium Total Bilirubin AST ALT Alkaline Phosphatase Total Creatine Kinase CK-MB (Mass) Troponin I Total Protein Albumin Globulin Albumin/Globulin Ratio Triglycerides Cholesterol LDL Cholesterol Direct HDL Cholesterol Urine HCG, Qual Negative Assessment & Plan (1) Vertigo Assessment and Plan: Likely benign positional vertigo. Will obtain MRI tomorrow. Continue meclizine and Valium and refer to vestibular rehab. Than you. Status: Acute Priority: Medium
--- NOTE | 2017-10-24 18:59 | CARD ---
APPROVED REPORT EXAM: Two-dimensional and M-mode echocardiogram with Doppler and color Doppler. Other Information Quality : GoodRhythm : INDICATION Dizziness and Vertigo Chest Pain RISK FACTORS Hyperlipidemia 2D DIMENSIONS IVSd1.1 (0.7-1.1cm)LVDd4.1 (3.9-5.9cm) PWd1.2 (0.7-1.1cm)LVDs2.6 (2.5-4.0cm) FS (%) 37.2 %LVEF (%)67.6 (>50%) M-Mode DIMENSIONS Left Atrium (MM)2.94 (2.5-4.0cm)Aortic Root2.68 (2.2-3.7cm) Aortic Cusp Exc.1.97 (1.5-2.0cm) Mitral Valve MV E Uqibmaix01.3cm/sMV A Rjawunxb33.5cm/sE/A ratio1.2 TDI E/Lateral E'0.0E/Medial E'0.0 LEFT VENTRICLE The left ventricle is normal size. There is normal left ventricular wall thickness. The left ventricular function is normal. The left ventricular ejection fraction is within the normal range. There is normal LV segmental wall motion. The left ventricular diastolic function is normal. RIGHT VENTRICLE The right ventricle is normal size. ATRIA The left atrium size is normal. The right atrium size is normal. AORTIC VALVE The aortic valve is normal in structure. MITRAL VALVE Mitral regurgitation is trace. TRICUSPID VALVE The tricuspid valve is normal in structure. <Conclusion> Normal LV systolic function. Normal chamber size. Trace MR.
--- NOTE | 2017-10-24 19:13 | CARD ---
APPROVED REPORT EKG Measurement Heart [id number] <Conclusion> Normal sinus rhythm with sinus arrhythmia
[2017-10-25] MEDS: Sodium Chloride 0.9% 1,000 ML IV SCH ×2 (05:30→14:35)
[2017-10-25] MEDS: Levothyroxine 200 MCG TAB PO SCH (06:22)
[2017-10-25 07:35] LABS: BASO # 0.1 K/uL (0.0-0.2); BASO % 2.1 % (0.0-2.0); EOS # 0.1 K/uL (0.0-0.7); EOS % 2.9 % (0.0-4.0); HEMOGLOBIN 12.8 g/dL (11.0-16.0); LYMPH % 41.7 % (20.0-40.0); MEAN CELL VOLUME 82.7 fL (81.0-99.0); MEAN CORPUSCULAR HEMOGLOBIN 28.3 pg (27.0-31.0); MEAN CORPUSCULAR HGB CONC 34.2 g/dL (33.0-37.0); MEAN PLATELET VOLUME 9.1 fL (7.2-11.7); MONO # 0.6 K/uL (0.0-0.8); MONO % 12.2 % (0.0-10.0); NEUT # 1.9 K/uL (1.8-7.0); NEUT % 41.1 % (50.0-75.0); NRBC % 0.1 % (0.0-2.0); RBC 4.53 Mil/uL (3.80-5.20); RED CELL DISTRIBUTION WIDTH 13.3 % (11.5-14.5); WHITE BLOOD COUNT 4.7 K/uL (4.8-10.8)
--- NOTE | 2017-10-25 07:53 | CP.PCM.PN ---
Subjective - Date & Time of Evaluation Date of Evaluation: 10/25/17 Time of Evaluation: 07:00 Objective - Vital Signs/Intake and Output Vital Signs (last 24 hours): Temp Pulse Resp BP Pulse Ox 98.4 F 76 20 114/72 97 10/25/17 04:15 10/25/17 04:15 10/25/17 04:15 10/25/17 04:15 10/25/17 04:15 Intake and Output: 10/25/17 10/25/17 06:59 18:59 Intake Total 1200 Balance 1200 - Medications Medications: Current Medications Aspirin (Ecotrin) 81 mg PO DAILY [facility] Last Admin: 10/24/17 09:11 Dose: 81 mg Diazepam (Valium) 2 mg PO Q6 PRN PRN Reason: Dizziness Last Admin: 10/24/17 11:56 Dose: 2 mg Enoxaparin Sodium (Lovenox) 40 mg SC DAILY [facility] Last Admin: 10/24/17 09:11 Dose: 40 mg Sodium Chloride (Sodium Chloride 0.9%) 1,000 mls @ 75 mls/hr IV .[id number] [facility] Last Admin: 10/25/17 05:30 Dose: 75 mls/hr Levothyroxine Sodium (Synthroid) 200 mcg PO DAILY@0630 [facility] Last Admin: 10/25/17 06:22 Dose: 200 mcg Meclizine HCl (Antivert) 25 mg PO BID [facility] Last Admin: 10/24/17 18:11 Dose: 25 mg Ondansetron HCl (Zofran Inj) 4 mg IVP Q6 PRN PRN Reason: Nausea/Vomiting Rosuvastatin Calcium (Crestor) 5 mg PO HS [facility] Last Admin: 10/24/17 21:15 Dose: 5 mg - Labs Labs: 10/25/17 07:16 10/24/17 06:36 PT 12.7 SECONDS (9.7-12.2) H 10/23/17 15:57 INR 1.2 10/23/17 15:57 APTT 31 SECONDS (21-34) 10/23/17 15:57 - Additional Findings Additional findings: - Constitutional Appears: Non-toxic, No Acute Distress - Head Exam Head Exam: ATRAUMATIC, NORMAL INSPECTION, NORMOCEPHALIC - Eye Exam Eye Exam: EOMI, Normal appearance Pupil Exam: absent: NORMAL ACCOMODATION (difficulty with accomodation) - ENT Exam ENT Exam: Mucous Membranes Moist - Respiratory Exam Respiratory Exam: Decreased Breath Sounds, NORMAL BREATHING PATTERN. absent: Rales, Rhonchi, Wheezes, Respiratory Distress, Stridor - Cardiovascular Exam Cardiovascular Exam: REGULAR RHYTHM, RRR, +S1, +S2 - GI/Abdominal Exam GI & Abdominal Exam: Soft, Normal Bowel Sounds. absent: Tenderness - Extremities Exam Extremities Exam: Normal Inspection. absent: Pedal Edema, Tenderness - Back Exam Back Exam: NORMAL INSPECTION - Neurological Exam Neurological Exam: Alert, Awake, CN II-XII Intact, Oriented x3 Neuro motor strength exam: Left Upper Extremity: 5, Right Upper Extremity: 5, Left Lower Extremity: 5, Right Lower Extremity: 5 Additional comments: dizziness with head movement - Psychiatric Exam Psychiatric exam: Normal Affect, Normal Mood - Skin Skin Exam: Intact, Normal Color, Warm Assessment and Plan - Assessment and Plan (Free Text) Assessment: Dizziness - Neurology, Dr. iPno was consulted by ED physician. recommended getting MRI/ MRA of head and neck. Also recommended starting pt on valium 2 mg po q6 for vertigo type symptoms. - MRI Brain/MRA of head and neck ordered - CTA: minor calcified plaque changes seen along posterior margins of both carotid bifurcations without significant stenosis. Remaining cervical an extracranial anterior posterior circulation patent. Intracerebral circulation widely patent with no evidence of large aneurysm nor vascular malformation. - Valium 2 mg po q6 prn - Antivert 25mg po BID - will give aspirin 325 mg and continue daily aspirin 81 mg po qd - Will check lipid panel and hgb A1c - will check orthostatics - NS 75 cc - Orthostatic vital signs check on 10/24: laying 150/82 HR 80, Sitting 140/84, HR 84, Standing 146/87, HR 80 Chest pain -resolved -Troponins neg x 3 -EKG was NSR with non-specific t wave changes - will check echo Hypothyroid - On admission TSH 8.45, free T4 1.01 - Continue home medication levothyroxine 200 mcg qd HLD - lipid panel: Chol 226, LDL 171, HDL 27. - Continue statin therapy Prophylaxis - SCDs - Lovenox
[2017-10-25 07:55] LABS: ALB/GLOB RATIO 0.9 (1.0-2.1); ALBUMIN 3.5 g/dL (3.5-5.0); ALT/SGPT 43 U/L (9-52); AST/SGOT 30 U/L (14-36); BLOOD UREA NITROGEN 5 mg/dL (7-17); GFR AFRICAN-AMERICAN > 60; GFR NON-AFRICAN AMERICAN > 60
[2017-10-25] MEDS ORDERED: Potassium Chloride 20 mEq ER Tab PO ONE (10:00)
[2017-10-25] MEDS: Enoxaparin 40 mg Syringe SC SCH (10:25)
[2017-10-25 14:18] VITALS: PULSE 76; TEMP 98.4
[2017-10-25 16:23] VITALS: BP 122/81; RESP 20; O2SAT 98
--- NOTE | 2017-10-25 17:02 | CP.PCM.DIS ---
<Zenaida Newell - Last Filed: 10/25/17 17:22> Provider - Provider Date of Admission: 10/23/17 20:53 Attending physician: Kiara Noland DO Consults: Dr. Pino (neuro) Time Spent in preparation of Discharge (in minutes): 40 Diagnosis - Discharge Diagnosis (1) Vertigo Status: Acute Priority: Medium (2) Dizziness Status: Acute (3) Chest pain Status: Resolved (4) Hypothyroidism Status: Chronic Hospital Course - Lab Results Lab Results: Most Recent Lab Values WBC 4.7 K/uL (4.8-10.8) L 10/25/17 07:16 RBC 4.53 Mil/uL (3.80-5.20) 10/25/17 07:16 Hgb 12.8 g/dL (11.0-16.0) 10/25/17 07:16 Hct 37.5 % (34.0-47.0) 10/25/17 07:16 MCV 82.7 fL (81.0-99.0) 10/25/17 07:16 MCH 28.3 pg (27.0-31.0) 10/25/17 07:16 MCHC 34.2 g/dL (33.0-37.0) 10/25/17 07:16 RDW 13.3 % (11.5-14.5) 10/25/17 07:16 Plt Count 264 K/uL (130-400) 10/25/17 07:16 MPV 9.1 fL (7.2-11.7) 10/25/17 07:16 Neut % (Auto) 41.1 % (50.0-75.0) L 10/25/17 07:16 Lymph % (Auto) 41.7 % (20.0-40.0) H 10/25/17 07:16 Edgar % (Auto) 12.2 % (0.0-10.0) H 10/25/17 07:16 Eos % (Auto) 2.9 % (0.0-4.0) 10/25/17 07:16 Baso % (Auto) 2.1 % (0.0-2.0) H 10/25/17 07:16 Neut # (Auto) 1.9 K/uL (1.8-7.0) 10/25/17 07:16 Lymph # (Auto) 2.0 K/uL (1.0-4.3) 10/25/17 07:16 Edgar # (Auto) 0.6 K/uL (0.0-0.8) 10/25/17 07:16 Eos # (Auto) 0.1 K/uL (0.0-0.7) 10/25/17 07:16 Baso # (Auto) 0.1 K/uL (0.0-0.2) 10/25/17 07:16 PT 12.7 SECONDS (9.7-12.2) H 10/23/17 15:57 INR 1.2 10/23/17 15:57 APTT 31 SECONDS (21-34) 10/23/17 15:57 Sodium 146 mmol/L (132-148) 10/25/17 07:16 Potassium 3.4 mmol/L (3.6-5.2) L 10/25/17 07:16 Chloride 110 mmol/L (98-107) H 10/25/17 07:16 Carbon Dioxide 26 mmol/L (22-30) 10/25/17 07:16 Anion Gap 14 (10-20) 10/25/17 07:16 BUN 5 mg/dL (7-17) L 10/25/17 07:16 Creatinine 0.6 mg/dL (0.7-1.2) L 10/25/17 07:16 Est GFR ( Amer) > 60 10/25/17 07:16 Est GFR (Non-Af Amer) > 60 10/25/17 07:16 Random Glucose 75 mg/dL (65-105) 10/25/17 07:16 Hemoglobin A1c 5.7 % (4.2-6.5) 10/24/17 06:36 Calcium 9.0 mg/dl (8.6-10.4) 10/25/17 07:16 Phosphorus 3.7 mg/dL (2.5-4.5) 10/25/17 07:16 Magnesium 2.0 mg/dL (1.6-2.3) 10/25/17 07:16 Total Bilirubin 1.0 mg/dL (0.2-1.3) 10/25/17 07:16 AST 30 U/L (14-36) 10/25/17 07:16 ALT 43 U/L (9-52) 10/25/17 07:16 Alkaline Phosphatase 64 U/L (38-126) 10/25/17 07:16 Total Creatine Kinase 49 U/L (30-135) 10/24/17 06:36 CK-MB (Mass) < 0.22 ng/mL (0.0-3.38) 10/24/17 06:36 Troponin I < 0.0120 ng/mL (0.00-0.120) 10/24/17 06:36 Total Protein 7.1 g/dL (6.3-8.3) 10/25/17 07:16 Albumin 3.5 g/dL (3.5-5.0) 10/25/17 07:16 Globulin 3.7 gm/dL (2.2-3.9) 10/25/17 07:16 Albumin/Globulin Ratio 0.9 (1.0-2.1) L 10/25/17 07:16 Triglycerides 75 mg/dL (0-149) D 10/24/17 06:36 Cholesterol 226 mg/dL (0-199) H 10/24/17 06:36 LDL Cholesterol Direct 171 mg/dL (0-129) H 10/24/17 06:36 HDL Cholesterol 27 mg/dL (30-70) L 10/24/17 06:36 Free T4 1.01 ng/dL (0.78-2.19) 10/23/17 15:57 TSH 3rd Generation 8.45 mIU/L (0.46-4.68) H 10/23/17 15:57 Urine HCG, Qual Negative (NEGATIVE) 10/24/17 10:24 - Hospital Course Hospital Course: HPI: "51 year old female with past medical history of hypothyroidism, HLD, vertigo and vit D deficiency presented to hospitals for feeling dizzy and nausea for about 7 days. Patient states that for about 7 days, she has been "feeling funny" on the left side of her face. This funny feeling was intermittent at first but in last few days has been more persistent. This morning, patient states that was having a hard time forming words and again the left side of her face was "feeling funny". Patient also complains of epigastric pain and N/V for past few days. She has vomited a few times in last few days, clear liquid, NB/NB. Patient denies having any D/C, F/C. Currently, patient continues to c/o lightheadedness. She states that every time she sits forward, lightheadedness worsens. Lightheadedness is different from her history of vertigo. Pt denies having any extremity weakness, numbness or tingling. Patient is able to ambulate without difficulty." Patient was admitted for nonremitting dizziness. CT was obtained and no abnormal findings were noted including no intracranial masses, hemorrhage, or evidence of acute infarct. Dr. Pino from Neurology was consulted. Pt could not tolerate Neck MRI/ head and neck MRA because she was too dizzy. A CTA of Head/ Neck showed minor calcified plaque changes along the posterior margins of both carotid bifurcations without significant stenosis. The remaining cervical and extracranial anterior posterior circulation patent. Intracerbral circulation widely patent with no evidence of large aneurysm or vascular malformation. Pt was treated with Valium 2 mg PO Q6 PRN and Antivert 25mg PO BID RONAL for dizziness and BPPV. Orthostatic Vital Signs were checked on 10/24 and orthostatic hypotension was ruled out as a cause of the dizziness. Upon discharge, patient' s symptoms were better controlled with the medications. Patient had no focal neural deficits at any point of her hospitalization. Upon admission, patient complained of chest pain. Chest pain resolved spontaneously. EKG x 2 was done. The first EKG read normal sinus and second EKG showed bradycardia. Troponins were negative x3. Echocardiogram was done and found normal LV systolic function (67.6%), and Trace Mitral Regurgitation. Patient was continued on her home medication levothyroxine 200mcg QD, which was recently titrated to by the PMD for her hypothyroidism. TSH was found to be 8.45 and free T4 1.01. Patient's lipid Panel was found to be T, Cholesterol: 226, LDL: 171, HDL: 27. Pt was started on Crestor 5 mg PO HS RONAL. [place] 3 FA intake was discussed with Pt to help increase HDL. For prophylaxis patient was placed on SCDs during her stay. Pt was started on Lovenox 40 mg SC Daily [facility] 10/24. This is a summary of the patient's hospital course, please see chart for full details. Discharge Exam - Head Exam Head Exam: ATRAUMATIC, NORMAL INSPECTION, NORMOCEPHALIC - Eye Exam Eye Exam: EOMI, Normal appearance - ENT Exam ENT Exam: Mucous Membranes Moist - Respiratory Exam Respiratory Exam: Clear to PA & Lateral, NORMAL BREATHING PATTERN. absent: Rales, Rhonchi, Wheezes - Cardiovascular Exam Cardiovascular Exam: REGULAR RHYTHM, RRR, +S1, +S2 - GI/Abdominal Exam GI & Abdominal Exam: Normal Bowel Sounds, Soft. absent: Tenderness - Extremities Exam Extremities exam: normal inspection - Neurological Exam Neurological exam: Alert, Oriented x3 - Psychiatric Exam Psychiatric exam: Normal Affect, Normal Mood - Skin Skin Exam: Intact, Normal Color, Warm Discharge Plan - Discharge Medications Prescriptions: RX: Aspirin [Ecotrin] 81 mg PO DAILY #30 tabec RX: diaZEpam [Valium] 2 mg PO Q6 PRN #20 tab PRN Reason: Dizziness RX: Levothyroxine Sodium [Levoxyl] 0.2 mg PO DAILY #14 tablet RX: Meclizine [Meclizine*] 25 mg PO BID #28 tab RX: Rosuvastatin Calcium [Crestor] 5 mg PO HS #30 tab - Follow Up Plan Condition: FAIR Disposition: HOME/ ROUTINE Instructions: Headache, Adult, Vertigo (a Type of Dizziness) (DC), Aspirin, Diazepam, Levothyroxine, Meclizine, Rosuvastatin Additional Instructions: Patient stable for discharge as per Dr. Noland and Dr. Pino. Patient to continue home medications as prescribed. Patient to also take the following new medications: Crestor 5mg by mouth every night Aspirin 81mg by mouth daily Valium 2mg by mouth every 6 hours as needed (take for Severe dizziness) Meclizine 25mg by mouth twice a day. Patient to please follow up with Dr. Pino in 2 weeks. If symptoms worsen/ return patient to please return to Emergency Room immediately. Patient explained instructions who understands and agrees. Referrals: [facility] [Provider Group] [facility] [Provider Group] Henrik Pino MD [Staff Provider] - <Kiara Noland V - Last Filed: 10/25/17 17:42> Provider - Provider Date of Admission: 10/23/17 20:53 Attending physician: Kiara Noland DO Hospital Course - Lab Results Lab Results: Most Recent Lab Values WBC 4.7 K/uL (4.8-10.8) L 10/25/17 07:16 RBC 4.53 Mil/uL (3.80-5.20) 10/25/17 07:16 Hgb 12.8 g/dL (11.0-16.0) 10/25/17 07:16 Hct 37.5 % (34.0-47.0) 10/25/17 07:16 MCV 82.7 fL (81.0-99.0) 10/25/17 07:16 MCH 28.3 pg (27.0-31.0) 10/25/17 07:16 MCHC 34.2 g/dL (33.0-37.0) 10/25/17 07:16 RDW 13.3 % (11.5-14.5) 10/25/17 07:16 Plt Count 264 K/uL (130-400) 10/25/17 07:16 MPV 9.1 fL (7.2-11.7) 10/25/17 07:16 Neut % (Auto) 41.1 % (50.0-75.0) L 10/25/17 07:16 Lymph % (Auto) 41.7 % (20.0-40.0) H 10/25/17 07:16 Edgar % (Auto) 12.2 % (0.0-10.0) H 10/25/17 07:16 Eos % (Auto) 2.9 % (0.0-4.0) 10/25/17 07:16 Baso % (Auto) 2.1 % (0.0-2.0) H 10/25/17 07:16 Neut # (Auto) 1.9 K/uL (1.8-7.0) 10/25/17 07:16 Lymph # (Auto) 2.0 K/uL (1.0-4.3) 10/25/17 07:16 Edgar # (Auto) 0.6 K/uL (0.0-0.8) 10/25/17 07:16 Eos # (Auto) 0.1 K/uL (0.0-0.7) 10/25/17 07:16 Baso # (Auto) 0.1 K/uL (0.0-0.2) 10/25/17 07:16 PT 12.7 SECONDS (9.7-12.2) H 10/23/17 15:57 INR 1.2 10/23/17 15:57 APTT 31 SECONDS (21-34) 10/23/17 15:57 Sodium 146 mmol/L (132-148) 10/25/17 07:16 Potassium 3.4 mmol/L (3.6-5.2) L 10/25/17 07:16 Chloride 110 mmol/L (98-107) H 10/25/17 07:16 Carbon Dioxide 26 mmol/L (22-30) 10/25/17 07:16 Anion Gap 14 (10-20) 10/25/17 07:16 BUN 5 mg/dL (7-17) L 10/25/17 07:16 Creatinine 0.6 mg/dL (0.7-1.2) L 10/25/17 07:16 Est GFR ( Amer) > 60 10/25/17 07:16 Est GFR (Non-Af Amer) > 60 10/25/17 07:16 Random Glucose 75 mg/dL (65-105) 10/25/17 07:16 Hemoglobin A1c 5.7 % (4.2-6.5) 10/24/17 06:36 Calcium 9.0 mg/dl (8.6-10.4) 10/25/17 07:16 Phosphorus 3.7 mg/dL (2.5-4.5) 10/25/17 07:16 Magnesium 2.0 mg/dL (1.6-2.3) 10/25/17 07:16 Total Bilirubin 1.0 mg/dL (0.2-1.3) 10/25/17 07:16 AST 30 U/L (14-36) 10/25/17 07:16 ALT 43 U/L (9-52) 10/25/17 07:16 Alkaline Phosphatase 64 U/L (38-126) 10/25/17 07:16 Total Creatine Kinase 49 U/L (30-135) 10/24/17 06:36 CK-MB (Mass) < 0.22 ng/mL (0.0-3.38) 10/24/17 06:36 Troponin I < 0.0120 ng/mL (0.00-0.120) 10/24/17 06:36 Total Protein 7.1 g/dL (6.3-8.3) 10/25/17 07:16 Albumin 3.5 g/dL (3.5-5.0) 10/25/17 07:16 Globulin 3.7 gm/dL (2.2-3.9) 10/25/17 07:16 Albumin/Globulin Ratio 0.9 (1.0-2.1) L 10/25/17 07:16 Triglycerides 75 mg/dL (0-149) D 10/24/17 06:36 Cholesterol 226 mg/dL (0-199) H 10/24/17 06:36 LDL Cholesterol Direct 171 mg/dL (0-129) H 10/24/17 06:36 HDL Cholesterol 27 mg/dL (30-70) L 10/24/17 06:36 Free T4 1.01 ng/dL (0.78-2.19) 10/23/17 15:57 TSH 3rd Generation 8.45 mIU/L (0.46-4.68) H 10/23/17 15:57 Urine HCG, Qual Negative (NEGATIVE) 10/24/17 10:24 Attending/Attestation - Attestation I have personally seen and examined this patient.: Yes I have fully participated in the care of the patient.: Yes I have reviewed all pertinent clinical information, including history, physical exam and plan: Yes Notes (Text): Patient seen, examined and case discussed with day-time resident. Agree with the discharge summary as written by the resident. Discharge order and discharge instructions discussed with patient and the resident. Patient reports she is feeling better and feels less dizzy. Patient reports eye sight has improved able to do accommodate and read "wu" off belt buckle. Patient recommended to follow-up with eye doctor for yearly screening exam. Resident has spoken with neurology, patient does not need MRI, recommended to f/ u outpatient in 2 weeks with prescriptions for Valium and Antivert provided as well as prescription for vestibular rehab. Patient is aware may involve out-of- pocket expenses. Prescriptions upon discharge: 1) Aspirin 81mg PO daily 2) Valium 2mg PO Q 6H PRN severe dizziness (5 day supply only) 3) Levothyroxine 200mcg PO qAM 4) Antivert 25mg PO BID 5) Crestor 5mg PO qHS This is a summary of patient's hospitalization. Please see EMR for further details. Discharge Diagnoses: 1) BPPV Dizziness Persistent Headache-->resolved * Neurology on board-->help appreciated * Recommended for Head/Neck MRI/MRA; if unable to tolerate-->CT head/neck for consideration for vestibular insufficiency * CT Head/Neck (10/24/17): minor calcified plaque changes seen along the posterior margins of both carotid bifurcations without significant stenosis. Remaining cervical an extracranial anterior posterior circulation. Intracerebral ciriculation widely patent with no evidence of large aneurysm nor vascular malformation * Patient is not orthostatic. * Lipid panel: T, Cholestrol: 226, LDL: 171, HDL: 27 * Hgba1c: 5.7 Upon discharge, * Valium 2mg PO Q6H for vertigo like systems as needed (5 days) * Aspirin 81mg PO daily * Antivert 25mg PO BID * Prescription for vestibular rehab * f/u with neurology in 2 weeks 2) Chest pain (resolved) * Lipid panel: T, Cholestrol: 226, LDL: 171, HDL: 27 * Hgba1c: 5.7 * Echocardiogram completed and official report available in EMR * EKG 1: normal sinus varies sinus arrhythmia * EkG 2: bradycardia * ERNIE X3: negative 3) Known history of hypothyroidism * On admission TSH 8.45, free T4 1.01 * Continue home medication levothyroxine 200 mcg qd--->patient recently titrated to this dose by her PMD 4) Lipid Disorder--Chronic * Lipid panel: T, Cholestrol: 226, LDL: 171, HDL: 27 * Crestor 5mg POqHS * Patient will need [place] 3 FA to increase HDL over time 5) Prophylaxis * SCDs * Lovenox 40mg subqdaily * Zofran 4mg IV Q6 H PRN nausea/vomitting * NS 75cc/hr
--- NOTE | 2017-10-25 22:24 | CARD ---
APPROVED REPORT EKG Measurement Heart [id number] <Conclusion> Sinus bradycardia Otherwise normal ECG
== END 2017-10-25 23:45 | disposition home or self-care (01) | DRG 65 ==
LOC: C.ER 13:54 → C.9E 20:53 → C.6T 22:37
PROVIDERS: ADMIT Hospitalist; ATTEND Hospitalist
DX: H81.10 Benign paroxysmal vertigo, unspecified ear (principal); E78.5 Hyperlipidemia, unspecified; E55.9 Vitamin D deficiency, unspecified; E03.9 Hypothyroidism, unspecified